=== PATIENT | female | born 1935 | race African-American/Black ===

== ENCOUNTER 2016-10-01 07:02 | Day surgery (SDC) | payer MEDICARE ==
--- NOTE | ~2016-10-01 | EGD ---
EGD REPORT [facility] [address] [address] NAME: SANTIAGO CHUA : 39 STATUS : REG [facility] [place] PAT#: [id number] AGE: 81 ADM/REG DATE : 10/01/16 MR#: [id number] REPORT SERV DATE: 10/01/16 DICTATED BY: DATE: REPORT STATUS : Draft TRANSCRIBED BY: [employer] DATE: 10/01/16 [facility] Patient Name: Santiago Chua Date of : 1935 Attending MD: JONNA FINNEGAN MD Procedure Date No Time: 10/01/2016 Procedure: Upper GI endoscopy Indications: Iron deficiency anemia, Heme positive stool Referring MD: WALLACE MCDONOUGH Medicines: Monitored Anesthesia Care Complications: No immediate complications. Procedure: Pre-Anesthesia Assessment: - ASA Grade Assessment: III - A patient with severe systemic disease. After obtaining informed consent, the endoscope was passed under direct vision. Throughout the procedure, the patient's blood pressure, pulse, and oxygen saturations were monitored continuously. The GIF [id number] [id number] was introduced through the mouth, and advanced to the third part of duodenum. The upper GI endoscopy was accomplished without difficulty. The patient tolerated the procedure well. Findings: The examined esophagus was normal. There is no endoscopic evidence of Haskins's esophagus, areas of erosion, hiatus hernia, ulcerations or varices in the entire esophagus. The Z-line was regular and was found 35 cm from the incisors. Multiple small erosions were found in the gastric antrum. One non-bleeding superficial gastric ulcer was found in the prepyloric region of the stomach. The lesion was 8 mm in largest dimension. Biopsies were taken with a cold forceps for Helicobacter pylori testing. No other significant abnormalities were identified in a careful examination of the stomach. There is no endoscopic evidence of varices, portal hypertension gastropathy or mass in the entire examined stomach. The examined duodenum was normal. Biopsies were taken with a cold forceps for evaluation of celiac disease. There is no endoscopic evidence of bleeding or ulceration in the entire examined duodenum. The cardia and gastric fundus were normal on retroflexion. Impression: - Normal esophagus. - Z-line regular, 35 cm from the incisors. - Erosive gastropathy. EGD REPORT [address] [address] NAME: SANTIAGO CHUA : [birth year] STATUS : REG [facility] [place] PAT#: [id number] AGE: 81 ADM/REG DATE : 10/01/16 MR#: [id number] REPORT SERV DATE: 10/01/16 DICTATED BY: DATE: REPORT STATUS : Draft TRANSCRIBED BY: [employer] DATE: 10/01/16 - Gastric ulcer with clean base. Biopsied. - Normal examined duodenum. Biopsied. Recommendation: - Patient has a contact number available for emergencies. The signs and symptoms of potential delayed complications were discussed with the patient. Return to normal activities tomorrow. Written discharge instructions were provided to the patient. - Return to previous diet. - Discharge patient to home. - Discontinue Naproxen. This type of medicine will cause ulcers and bleeding. Talk with Dr. Mcdonough about alternative. - No aspirin, ibuprofen, naproxen, or other non-steroidal anti-inflammatory drugs. - Pantoprazole 40 mg daily to heal ulcer then can stop. - Await pathology results. Procedure Code(s): --- Professional --- 35315, Esophagogastroduodenoscopy, flexible, transoral; with biopsy, single or multiple Diagnosis Code(s): --- Professional --- K31.9, Disease of stomach and duodenum, unspecified K25.9, Gastric ulcer, unspecified as acute or chronic, without hemorrhage or perforation D50.9, Iron deficiency anemia, unspecified R19.5, Other fecal abnormalities CPT copyright 2013 [employer]. All rights reserved. The codes documented in this report are preliminary and upon aerophysics engineer review may be revised to meet current compliance requirements. JONNA FINNEGAN MD 10/01/2016 9:25 AM This report has been signed electronically. Number of Addenda: 0 Note Initiated On: 10/01/2016 8:55 AM Scope Withdrawal Time 0 hours 0 minutes 0 seconds [address] [place] [address]
--- NOTE | ~2016-10-01 | EGD ---
EGD REPORT [facility] [address] [address] NAME: SANTIAGO CHUA : [birth year] STATUS : REG [facility] [place] PAT#: [id number] AGE: 81 ADM/REG DATE : 10/01/16 MR#: [id number] REPORT SERV DATE: 10/01/16 DICTATED BY: DATE: REPORT STATUS : Draft TRANSCRIBED BY: [employer] DATE: 10/01/16 [facility] Patient Name: Santiago Chua Date of : 1935 Attending MD: JONNA FINENGAN MD Procedure Date No Time: 10/01/2016 Procedure: Colonoscopy Indications: Heme positive stool, Iron deficiency anemia Referring MD: WALLACE MCDONOUGH Medicines: Monitored Anesthesia Care Complications: No immediate complications. Procedure: Pre-Anesthesia Assessment: - ASA Grade Assessment: III - A patient with severe systemic disease. After I obtained informed consent, the scope was passed under direct vision. Throughout the procedure, the patient's blood pressure, pulse, and oxygen saturations were monitored continuously. The PCF [id number] was introduced through the anus and advanced to the cecum, identified by appendiceal orifice and ileocecal valve. The colonoscopy was performed without difficulty. The patient tolerated the procedure well. The quality of the bowel preparation was excellent. Findings: The perianal and digital rectal examinations were normal. A few small-mouthed diverticula were found in the sigmoid colon. There was a small lipoma, in the distal ascending colon. No other significant abnormalities were identified in a careful examination of the remainder of the colon. There is no endoscopic evidence of erythema, inflammation, mass, polyps, ulcerations or angioectasia in the entire colon. Internal hemorrhoids were found during retroflexion and were Grade I (internal hemorrhoids that do not prolapse). No additional abnormalities were found on retroflexion. Impression: - Diverticulosis in the sigmoid colon. - Small lipoma in the distal ascending colon. - Internal hemorrhoids. Recommendation: - Patient has a contact number available for emergencies. The signs and symptoms of potential delayed complications were discussed with the patient. Return to normal activities tomorrow. Written discharge instructions were provided to the patient. EGD REPORT [address] [address] NAME: SANTIAGO CHUA : [birth year] STATUS : REG [facility] [place] PAT#: [id number] AGE: 81 ADM/REG DATE : 10/01/16 MR#: [id number] REPORT SERV DATE: 10/01/16 DICTATED BY: DATE: REPORT STATUS : Draft TRANSCRIBED BY: [employer] DATE: 10/01/16 - High fiber diet. - Discharge patient to home. - Continue present medications. - Repeat colonoscopy is not recommended for surveillance. Procedure Code(s): --- Professional --- 15832, Colonoscopy, flexible, proximal to splenic flexure; diagnostic, with or without collection of specimen(s) by brushing or washing, with or without colon decompression (separate procedure) Diagnosis Code(s): --- Professional --- K64.0, First degree hemorrhoids K57.30, Diverticulosis of large intestine without perforation or abscess without bleeding D17.5, Benign lipomatous neoplasm of intra-abdominal organs R19.5, Other fecal abnormalities D50.9, Iron deficiency anemia, unspecified CPT copyright 2013 [employer]. All rights reserved. The codes documented in this report are preliminary and upon frame nailer review may be revised to meet current compliance requirements. JONNA FINNEGAN MD 10/01/2016 9:27 AM This report has been signed electronically. Number of Addenda: 0 Note Initiated On: 10/01/2016 8:50 AM Scope Withdrawal Time 0 hours 8 minutes 43 seconds [id number] [place] [id number]
[~2016-10-01 07:02] MED LIST: ALEVE220 MG PO; GLUCOTRO10 PO; GLUCPH8 PO; HYZAAR 100/25 T1 TAB PO; MULTIVIT/MIN PO; ZOCOR40 PO
== END 2016-10-01 23:59 | disposition home or self-care (01) ==
LOC: DMU 07:02
PROVIDERS: Internal Medicine Gastroenterology
PROC: 0DJD8ZZ Inspection of Lower Intestinal Tract, Via Natural or Artificial Opening Endoscopic (ICD-10-PCS; 2016-10-01)
PROC: 0DB68ZX Excision of Stomach, Via Natural or Artificial Opening Endoscopic, Diagnostic (ICD-10-PCS; principal; 2016-10-01 09:00)
PROC: 0DB98ZX Excision of Duodenum, Via Natural or Artificial Opening Endoscopic, Diagnostic (ICD-10-PCS; 2016-10-01 09:00)
DX: K29.80 Duodenitis without bleeding (principal); K29.50 Unspecified chronic gastritis without bleeding; B96.81 Helicobacter pylori [H. pylori] as the cause of diseases classified elsewhere; D50.9 Iron deficiency anemia, unspecified; R19.5 Other fecal abnormalities; K31.9 Disease of stomach and duodenum, unspecified; K64.0 First degree hemorrhoids; K57.30 Diverticulosis of large intestine without perforation or abscess without bleeding; D17.5 Benign lipomatous neoplasm of intra-abdominal organs; I10 Essential (primary) hypertension; E11.9 Type 2 diabetes mellitus without complications; Z79.899 Other long term (current) drug therapy; Z79.84 Long term (current) use of oral hypoglycemic drugs
CPT/HCPCS: 82962; 88305